=== PATIENT | male | born 1930 | race Caucasian/White ===

== ENCOUNTER 2018-04-20 07:46 | Outpatient (CLI) | payer MEDICARE, MEDICAID ==
[2018-04-20] VITALS (20 sets, daily range): BP systolic 124–170; BP diastolic 62–99
[~2018-04-20 07:46] MED LIST: ASPI-1265 PO; CLOP75TA16 PO; FURO40TA4 PO; ISOS20TA8 PO; LISI10TA4 PO; ZOC40T PO
== END 2018-04-20 23:59 | disposition home or self-care (01) ==
LOC: CARD DIAG 07:46
PROVIDERS: ATTEND Internal Medicine Cardiovascular Disease
DX: I11.0 Hypertensive heart disease with heart failure (principal); I50.9 Heart failure, unspecified; F03.90 Unspecified dementia, unspecified severity, without behavioral disturbance, psychotic disturbance, mood disturbance, and anxiety; R55 Syncope and collapse
CPT/HCPCS: 93660

== ENCOUNTER 2018-04-21 08:41 | Outpatient (CLI) | payer MEDICARE, MEDICAID | END 2018-04-21 23:59 | disposition home or self-care (01) | LOC: 64 CT 08:41 | PROVIDERS: ATTEND Family Medicine | DX: M19.011 Primary osteoarthritis, right shoulder (principal); S43.401A Unspecified sprain of right shoulder joint, initial encounter; X58.XXXA Exposure to other specified factors, initial encounter; Y93.89 Activity, other specified; Y92.89 Other specified places as the place of occurrence of the external cause; Y99.8 Other external cause status | CPT/HCPCS: 73200 ==

== ENCOUNTER 2018-07-09 10:41 | Inpatient (IN) | payer MEDICARE, MEDICAID ==
[2018-07-09] VITALS (8 sets, daily range): BP systolic 89–120; BP diastolic 41–53
[~2018-07-09] VITALS: Ht 167.6 cm; Wt 96.9 kg
[~2018-07-09 10:41] MED LIST changes: +pantoprazole 40 MG vial IV SCH
[2018-07-09] MEDS ORDERED: normal saline 1000ML IV soln IV ONE (11:05)
[2018-07-09 11:47] LABS: BASOPHILS % (AUTO) 0.2 % (0-1); EOSINOPHILS % (AUTO) 0.4 % (0-6); HEMATOCRIT 40.7 % (42.0-52.0); HEMOGLOBIN 13.6 g/dl (14.0-17.9); LYMPHOCYTES # (AUTO) 0.5 X10'3 (1.1-4.8); MEAN CORPUSCULAR HEMOGLOBIN 31.6 PG (27.0-31.0); MEAN CORPUSCULAR HGB CONC 33.3 % (33.0-36.5); MEAN CORPUSCULAR VOLUME 94.7 FL (78-98); MEAN PLATELET VOLUME 9.5 FL (7.4-10.4); MONOCYTES # (AUTO) 0.2 X10'3 (0-0.9); MONOCYTES % (AUTO) 4.1 % (2-12); NEUTROPHILS # (AUTO) 4.4 X10'3 (1.8-7.7); NEUTROPHILS % (AUTO) 85.3 % (42-75); PLATELET COUNT 132 X10'3 (140-440); RED BLOOD COUNT 4.29 X10'6 (4.70-6.10); RED CELL DISTRIBUTION WIDTH 16.4 % (11.5-14.5); WHITE BLOOD COUNT 5.2 X10'3 (4.5-11.0)
[2018-07-09 11:48] LABS: INR 1.1 INR; PARTIAL THROMBOPLASTIN TIME 33 SECONDS (22-32); PROTHROMBIN TIME 11.1 SECONDS (9.0-12.0)
[2018-07-09 11:56] LABS: ALANINE AMINOTRANSFERASE 14 U/L (12-78); ALBUMIN 2.2 G/DL (3.4-5.0); ALBUMIN/GLOBULIN RATIO 0.5 (1.1-1.5); ALKALINE PHOSPHATASE 88 IU/L (46-116); ANION GAP 20 (8-16); ASPARTATE AMINO TRANSFERASE 19 U/L (10-37); BILIRUBIN,TOTAL 0.3 MG/DL (0.1-1.0); BLOOD UREA NITROGEN 116 MG/DL (7-18); BUN/CREATININE RATIO 12.9 (5.4-32.0); CALCIUM 8.6 MG/DL (8.5-10.1); CHLORIDE 111 MMOL/L (99-107); CREATININE 8.96 MG/DL (0.60-1.10); GLUCOSE 130 MG/DL (70-104); SODIUM 140 MMOL/L (135-145); TOTAL PROTEIN 6.3 G/DL (6.4-8.2); eGFR 6 ML/MIN
[2018-07-09 12:06] LABS: POTASSIUM 6.2 MMOL/L (3.5-5.1); TOTAL CARBON DIOXIDE 9.4 MMOL/L (24-32)
[2018-07-09] MEDS ORDERED: vancomycin/NS 1 GM ADD-VANTAGE 250 ML X 1 DOSE IV ONE (12:40)
[2018-07-09] MEDS ORDERED: CefTRIAXone 2gm/D5W 50ml 50 ML IV ONE (12:50)
[2018-07-09 12:51] LABS: CLARITY,URINE CLOUDY (Clear); COLOR,URINE YELLOW (Yellow); GLUCOSE, URINE NEGATIVE (Neg); KETONES,URINE TRACE mg/dl (Neg); LEUKOCYTE ESTERASE ,URINE NEGATIVE (Neg); NITRITES, URINE NEGATIVE (Neg); OCCULT BLOOD,URINE MODERATE (Neg); PROTEIN,URINE NEGATIVE (Neg); UROBILINOGEN,URINE 0.2 E.U/dL (0.2-1.0)
[2018-07-09 12:54] LABS: UA COLLECTION TYPE FOLEY CATH
[2018-07-09] MEDS: K, MAG and/or Phos replacement - Verify level? MC SCH (13:00)
[2018-07-09 13:04] LABS: AMORPHOUS URATES 2+; BACTERIA,URINE NONE SEEN /HPF (Neg); HYALINE CASTS 0-3 /LPF (NEGATIVE); MUCUS STRANDS FEW /LPF (Neg); SQUAMOUS EPITHELIAL CELL,UR FEW /LPF (FEW)
[2018-07-09 13:05] LABS: WBC,URINE 0-4 /HPF (0-4)
[2018-07-09 13:32] LABS: NEUTROPHILS % (MANUAL) 66 % (42-75); TOTAL CELLS COUNTED 100
[2018-07-09 13:33] LABS: BANDS% (MANUAL) 16 % (0-10); LYMPHOCYTES % (MANUAL) 12 % (21-51); MONOCYTES % (MANUAL) 6 % (2-12); PLATELET ESTIMATE DECREASED
[2018-07-09 13:34] LABS: LARGE PLATELETS FEW
[2018-07-09 13:35] LABS: ABG BASE EXCESS -16.3 mmol/L (-2.0-3.0); ABG OXYGEN SATURATION 97.2 % (95-98); ABG PH (T) 7.317 (7.350-7.450); ALLEN'S TEST Positive; FCOHb 0.2 % (0.5-1.5); FMetHb 0.4 % (0.3-1.12); FO2Hb 96.6 % (94-100); TOTAL HEMOGLOBIN 13.4 G/dl (14.0-18.0)
[2018-07-09 13:35] LABS: ANISOCYTOSIS 1+; TOXIC GRANULATION 3+; TOXIC VACUOLATION 3+
[2018-07-09 13:36] LABS: BURR CELLS 2+; ELLIPTOCYTES FEW
[2018-07-09] MEDS ORDERED: acetaminophen 325mg tablet PO PRN ×2 (14:20)
[2018-07-09] MEDS ORDERED: Neutra Phos packet PO PRN (14:20)
[2018-07-09] MEDS ORDERED: sodium phosphate inj. 30 MMOL in dextrose 5%-water 250 ML IV PRN (14:20)
[2018-07-09] MEDS ORDERED: bisacodyl 10mg suppository rectal RC PRN (14:20)
[2018-07-09] MEDS ORDERED: magnesium 4gm in 100ml NS 100 ML IV PRN (14:20)
[2018-07-09] MEDS ORDERED: potassium Cl 20 mEq SR tablet PO PRN ×2 (14:20)
[2018-07-09] MEDS ORDERED: ondansetron/PF 4mg/2ml inj IV PRN (14:20)
[2018-07-09] MEDS ORDERED: magnesium 1gm/100ml D5W IVPB 100 ML IV PRN (14:20)
[2018-07-09] MEDS ORDERED: magnesium Cl slow-release 64mg tablet PO PRN (14:20)
[2018-07-09] MEDS ORDERED: sodium phosphate inj. 15 MMOL in dextrose 5%-water 150 ML IV PRN (14:20)
[2018-07-09] MEDS ORDERED: sodium bicarbonate (8.4%) 1 mEq/ml syringe IV ONE (14:30)
[2018-07-09] MEDS: pantoprazole 40 MG vial IV SCH (14:59)
[2018-07-09] MEDS: albuterol 2.5 MG/3 ML nebule CONTNEB SCH ×4 (15:16→18:42)
[2018-07-09] MEDS: sodium bicarbonate (8.4%) inj. 150 MEQ in dextrose 5%-water 1,000 ML IV SCH (15:51)
[2018-07-09] MEDS: piperacillin/tazo 3.375gm/50ml 50 ML IV SCH ×2 (16:46→23:23)
[2018-07-09 17:16] LABS: ALBUMIN 2.2 G/DL (3.4-5.0); ANION GAP 16 (8-16); BLOOD UREA NITROGEN 110 MG/DL (7-18); BUN/CREATININE RATIO 13.4 (5.4-32.0); CALCIUM 8.4 MG/DL (8.5-10.1); CHLORIDE 113 MMOL/L (99-107); GLUCOSE 145 MG/DL (70-104); POTASSIUM 5.9 MMOL/L (3.5-5.1); SODIUM 142 MMOL/L (135-145); eGFR 6 ML/MIN
[2018-07-09 17:18] LABS: TOTAL CARBON DIOXIDE 13.1 MMOL/L (24-32)
[2018-07-09] MEDS ORDERED: dextrose 50%-water 50ml dispensing syringe IV ONE (19:40)
[2018-07-09] MEDS ORDERED: insulin regular, human 10 units/0.1 ml syringe IV ONE (19:40)
[2018-07-09] MEDS: heparin, porcine 5000 units/ml vial SQ SCH (20:04)
[2018-07-09 23:05] LABS: ANION GAP 19 (8-16); BLOOD UREA NITROGEN 112 MG/DL (7-18); BUN/CREATININE RATIO 13.1 (5.4-32.0); CHLORIDE 111 MMOL/L (99-107); CREATININE 8.52 MG/DL (0.60-1.10); GLUCOSE 196 MG/DL (70-104); POTASSIUM 4.9 MMOL/L (3.5-5.1); SODIUM 142 MMOL/L (135-145); eGFR 6 ML/MIN
[2018-07-09 23:09] LABS: TOTAL CARBON DIOXIDE 11.7 MMOL/L (24-32)
[2018-07-10] VITALS (24 sets, daily range): BP systolic 80–144; BP diastolic 40–87
[2018-07-10] MEDS: sodium bicarbonate (8.4%) inj. 150 MEQ in dextrose 5%-water 1,000 ML IV SCH ×3 (02:42→23:34)
[2018-07-10] MEDS: VANCOMYCIN LEVEL IV SCH (04:44)
[2018-07-10 05:53] LABS: BASOPHILS % (AUTO) 0.3 % (0-1); HEMATOCRIT 37.3 % (42.0-52.0); HEMOGLOBIN 12.6 g/dl (14.0-17.9); LYMPHOCYTES # (AUTO) 0.6 X10'3 (1.1-4.8); LYMPHOCYTES % (AUTO) 13.4 % (21-51); MEAN CORPUSCULAR HEMOGLOBIN 31.4 PG (27.0-31.0); MEAN CORPUSCULAR HGB CONC 33.7 % (33.0-36.5); MEAN CORPUSCULAR VOLUME 93.1 FL (78-98); MEAN PLATELET VOLUME 9.7 FL (7.4-10.4); MONOCYTES # (AUTO) 0.3 X10'3 (0-0.9); MONOCYTES % (AUTO) 6.9 % (2-12); NEUTROPHILS # (AUTO) 3.2 X10'3 (1.8-7.7); NEUTROPHILS % (AUTO) 78.4 % (42-75); PLATELET COUNT 128 X10'3 (140-440); RED CELL DISTRIBUTION WIDTH 16.8 % (11.5-14.5); WHITE BLOOD COUNT 4.1 X10'3 (4.5-11.0)
[2018-07-10 05:59] LABS: INR 1.1 INR; PARTIAL THROMBOPLASTIN TIME 35 SECONDS (22-32); PROTHROMBIN TIME 11.4 SECONDS (9.0-12.0)
[2018-07-10] MEDS ORDERED: vancomycin inj 1,250 MG in normal saline 250ml IV soln 250 ML IV PRN (06:00)
[2018-07-10 06:02] LABS: ALBUMIN 1.9 G/DL (3.4-5.0); ANION GAP 16 (8-16); BILIRUBIN,TOTAL 0.3 MG/DL (0.1-1.0); BLOOD UREA NITROGEN 113 MG/DL (7-18); BUN/CREATININE RATIO 13.8 (5.4-32.0); CALCIUM 8.2 MG/DL (8.5-10.1); CHLORIDE 110 MMOL/L (99-107); CREATININE 8.17 MG/DL (0.60-1.10); GLUCOSE 110 MG/DL (70-104); MAGNESIUM 1.9 MG/DL (1.5-2.4); PHOSPHORUS 3.6 MG/DL (2.3-4.5); POTASSIUM 4.9 MMOL/L (3.5-5.1); SODIUM 143 MMOL/L (135-145); TOTAL CARBON DIOXIDE 16.8 MMOL/L (24-32); TOTAL PROTEIN 5.7 G/DL (6.4-8.2); eGFR 6 ML/MIN
[2018-07-10 06:03] LABS: ALANINE AMINOTRANSFERASE 11 U/L (12-78); ALBUMIN/GLOBULIN RATIO 0.5 (1.1-1.5); ALKALINE PHOSPHATASE 79 IU/L (46-116); ASPARTATE AMINO TRANSFERASE 17 U/L (10-37); VANCOMYCIN,RANDOM 12.1 UG/ML
[2018-07-10 06:16] LABS: ANISOCYTOSIS 1+; PLATELET ESTIMATE DECREASED; TOTAL CELLS COUNTED 100
[2018-07-10 06:18] LABS: TOXIC GRANULATION 2+
[2018-07-10] MEDS: K, MAG and/or Phos replacement - Verify level? MC SCH (07:41)
[2018-07-10] MEDS: pantoprazole 40 MG vial IV SCH (07:51)
[2018-07-10] MEDS: piperacillin/tazo 3.375gm/50ml 50 ML IV SCH ×3 (07:51→23:33)
[2018-07-10] MEDS: heparin, porcine 5000 units/ml vial SQ SCH ×2 (07:52→19:40)
[2018-07-10] MEDS ORDERED: vancomycin inj 1,250 MG in normal saline 250ml IV soln 250 ML IV ONE (11:25)
[2018-07-10] MEDS ORDERED: LISI-600 PO (13:09)
[2018-07-10] MEDS: lactobacillus rhamnosus 10,000 MMU CELLS/CAPSULE PO SCH (19:36)
[2018-07-11] VITALS (24 sets, daily range): BP systolic 15–175; BP diastolic 45–97
[2018-07-11] MEDS ORDERED: piperacillin-tazo 2.25gm/50ml 50 ML IV SCH (02:00)
[2018-07-11] MEDS: VANCOMYCIN LEVEL IV SCH (05:11)
[2018-07-11 06:08] LABS: BASOPHILS % (AUTO) 0.2 % (0-1); EOSINOPHILS # (AUTO) 0.1 X10'3 (0-0.9); EOSINOPHILS % (AUTO) 2.7 % (0-6); HEMATOCRIT 38.2 % (42.0-52.0); HEMOGLOBIN 12.8 g/dl (14.0-17.9); LYMPHOCYTES # (AUTO) 0.6 X10'3 (1.1-4.8); LYMPHOCYTES % (AUTO) 14.1 % (21-51); MEAN CORPUSCULAR HEMOGLOBIN 31.2 PG (27.0-31.0); MEAN CORPUSCULAR HGB CONC 33.6 % (33.0-36.5); MEAN CORPUSCULAR VOLUME 92.9 FL (78-98); MEAN PLATELET VOLUME 10.2 FL (7.4-10.4); MONOCYTES # (AUTO) 0.6 X10'3 (0-0.9); MONOCYTES % (AUTO) 13.5 % (2-12); NEUTROPHILS # (AUTO) 2.9 X10'3 (1.8-7.7); NEUTROPHILS % (AUTO) 69.5 % (42-75); PLATELET COUNT 112 X10'3 (140-440); RED BLOOD COUNT 4.11 X10'6 (4.70-6.10); RED CELL DISTRIBUTION WIDTH 15.4 % (11.5-14.5); WHITE BLOOD COUNT 4.2 X10'3 (4.5-11.0)
[2018-07-11 06:12] LABS: INR 1.1 INR; PARTIAL THROMBOPLASTIN TIME 40 SECONDS (22-32); PROTHROMBIN TIME 11.6 SECONDS (9.0-12.0)
[2018-07-11 06:42] LABS: ANISOCYTOSIS 1+; PLATELET ESTIMATE DECREASED; TOTAL CELLS COUNTED 100; TOXIC GRANULATION 2+
[2018-07-11 07:10] LABS: ALANINE AMINOTRANSFERASE 19 U/L (12-78); ALBUMIN 1.8 G/DL (3.4-5.0); ALBUMIN/GLOBULIN RATIO 0.5 (1.1-1.5); ALKALINE PHOSPHATASE 76 IU/L (46-116); ANION GAP 13 (8-16); ASPARTATE AMINO TRANSFERASE 29 U/L (10-37); BILIRUBIN,TOTAL 0.4 MG/DL (0.1-1.0); BLOOD UREA NITROGEN 98 MG/DL (7-18); BUN/CREATININE RATIO 13.9 (5.4-32.0); CALCIUM 7.9 MG/DL (8.5-10.1); CHLORIDE 108 MMOL/L (99-107); CREATININE 7.06 MG/DL (0.60-1.10); GLUCOSE 93 MG/DL (70-104); MAGNESIUM 1.6 MG/DL (1.5-2.4); PHOSPHORUS 3.4 MG/DL (2.3-4.5); POTASSIUM 4.3 MMOL/L (3.5-5.1); SODIUM 145 MMOL/L (135-145); TOTAL CARBON DIOXIDE 23.6 MMOL/L (24-32); TOTAL PROTEIN 5.5 G/DL (6.4-8.2); VANCOMYCIN,RANDOM 21.7 UG/ML; eGFR 7 ML/MIN
[2018-07-11] MEDS: clopidogrel 75mg tablet PO SCH (08:00)
[2018-07-11] MEDS: piperacillin/tazo 3.375gm/50ml 50 ML IV SCH ×2 (08:00→15:32)
[2018-07-11] MEDS: K, MAG and/or Phos replacement - Verify level? MC SCH (08:00)
[2018-07-11] MEDS: lactobacillus rhamnosus 10,000 MMU CELLS/CAPSULE PO SCH ×2 (08:00→19:54)
[2018-07-11] MEDS: heparin, porcine 5000 units/ml vial SQ SCH ×2 (08:00→19:54)
[2018-07-11] MEDS: aspirin 81mg tab.chew PO SCH (08:00)
[2018-07-11] MEDS: pantoprazole 40 MG vial IV SCH (08:01)
[2018-07-11] MEDS: sodium bicarbonate (8.4%) inj. 150 MEQ in dextrose 5%-water 1,000 ML IV SCH (15:35)
[2018-07-12] VITALS (19 sets, daily range): BP systolic 92–158; BP diastolic 58–92
[2018-07-12] MEDS: piperacillin/tazo 3.375gm/50ml 50 ML IV SCH ×3 (00:38→15:54)
[2018-07-12] MEDS: sodium bicarbonate (8.4%) inj. 150 MEQ in dextrose 5%-water 1,000 ML IV SCH (02:00)
[2018-07-12] MEDS: VANCOMYCIN LEVEL IV SCH (03:00)
[2018-07-12 06:18] LABS: BASOPHILS % (AUTO) 0.2 % (0-1); EOSINOPHILS # (AUTO) 0.1 X10'3 (0-0.9); EOSINOPHILS % (AUTO) 3.3 % (0-6); HEMATOCRIT 37.9 % (42.0-52.0); HEMOGLOBIN 12.7 g/dl (14.0-17.9); LYMPHOCYTES # (AUTO) 0.8 X10'3 (1.1-4.8); LYMPHOCYTES % (AUTO) 18.8 % (21-51); MEAN CORPUSCULAR HEMOGLOBIN 31.3 PG (27.0-31.0); MEAN CORPUSCULAR HGB CONC 33.5 % (33.0-36.5); MEAN CORPUSCULAR VOLUME 93.5 FL (78-98); MONOCYTES # (AUTO) 0.4 X10'3 (0-0.9); NEUTROPHILS # (AUTO) 2.8 X10'3 (1.8-7.7); NEUTROPHILS % (AUTO) 68.7 % (42-75); PLATELET COUNT 99 X10'3 (140-440); RED BLOOD COUNT 4.05 X10'6 (4.70-6.10); RED CELL DISTRIBUTION WIDTH 15.7 % (11.5-14.5); WHITE BLOOD COUNT 4.2 X10'3 (4.5-11.0)
[2018-07-12 06:25] LABS: INR 1.1 INR; PARTIAL THROMBOPLASTIN TIME 38 SECONDS (22-32); PROTHROMBIN TIME 11.4 SECONDS (9.0-12.0)
[2018-07-12 06:40] LABS: PLATELET ESTIMATE DECREASED; POLYCHROMASIA 1+; TOTAL CELLS COUNTED 100
[2018-07-12 06:51] LABS: ALANINE AMINOTRANSFERASE 23 U/L (12-78); ALBUMIN 1.6 G/DL (3.4-5.0); ALBUMIN/GLOBULIN RATIO 0.5 (1.1-1.5); ALKALINE PHOSPHATASE 67 IU/L (46-116); ANION GAP 9 (8-16); ASPARTATE AMINO TRANSFERASE 30 U/L (10-37); BILIRUBIN,TOTAL 0.4 MG/DL (0.1-1.0); BLOOD UREA NITROGEN 78 MG/DL (7-18); CALCIUM 7.8 MG/DL (8.5-10.1); CHLORIDE 106 MMOL/L (99-107); CREATININE 5.57 MG/DL (0.60-1.10); GLUCOSE 99 MG/DL (70-104); MAGNESIUM 1.6 MG/DL (1.5-2.4); PHOSPHORUS 3.4 MG/DL (2.3-4.5); POTASSIUM 3.6 MMOL/L (3.5-5.1); SODIUM 145 MMOL/L (135-145); TOTAL CARBON DIOXIDE 30.2 MMOL/L (24-32); TOTAL PROTEIN 5.1 G/DL (6.4-8.2); VANCOMYCIN,RANDOM 16.1 UG/ML; eGFR 10 ML/MIN
[2018-07-12] MEDS: K, MAG and/or Phos replacement - Verify level? MC SCH (08:00)
[2018-07-12] MEDS: heparin, porcine 5000 units/ml vial SQ SCH ×2 (08:41→19:42)
[2018-07-12] MEDS: lactobacillus rhamnosus 10,000 MMU CELLS/CAPSULE PO SCH ×2 (08:41→19:40)
[2018-07-12] MEDS: pantoprazole 40 MG vial IV SCH (08:41)
[2018-07-12] MEDS: aspirin 81mg tab.chew PO SCH (08:41)
[2018-07-12] MEDS: clopidogrel 75mg tablet PO SCH (08:42)
[2018-07-12] MEDS ORDERED: normal saline 1000ml 1,000 ML IV SCH (10:55)
[2018-07-12] MEDS: normal saline 1000ml 1,000 ML IV SCH (12:45)
[2018-07-13] MEDS: piperacillin/tazo 3.375gm/50ml 50 ML IV SCH ×2 (00:11→08:07)
[2018-07-13] MEDS: normal saline 1000ml 1,000 ML IV SCH ×2 (00:14→14:50)
[2018-07-13 03:00] VITALS: BP 118/72
[2018-07-13] MEDS: VANCOMYCIN LEVEL IV SCH (03:00)
[2018-07-13 06:00] VITALS: BP 160/83
[2018-07-13 06:10] LABS: BASOPHILS % (AUTO) 0.5 % (0-1); EOSINOPHILS # (AUTO) 0.1 X10'3 (0-0.9); EOSINOPHILS % (AUTO) 3.4 % (0-6); HEMATOCRIT 38.4 % (42.0-52.0); HEMOGLOBIN 12.9 g/dl (14.0-17.9); LYMPHOCYTES # (AUTO) 1.1 X10'3 (1.1-4.8); LYMPHOCYTES % (AUTO) 27.9 % (21-51); MEAN CORPUSCULAR HEMOGLOBIN 31.3 PG (27.0-31.0); MEAN CORPUSCULAR HGB CONC 33.6 % (33.0-36.5); MEAN PLATELET VOLUME 9.8 FL (7.4-10.4); MONOCYTES # (AUTO) 0.4 X10'3 (0-0.9); NEUTROPHILS # (AUTO) 2.2 X10'3 (1.8-7.7); NEUTROPHILS % (AUTO) 57.2 % (42-75); PLATELET COUNT 101 X10'3 (140-440); RED BLOOD COUNT 4.13 X10'6 (4.70-6.10); RED CELL DISTRIBUTION WIDTH 16.2 % (11.5-14.5); WHITE BLOOD COUNT 3.9 X10'3 (4.5-11.0)
[2018-07-13 06:17] LABS: PARTIAL THROMBOPLASTIN TIME 35 SECONDS (22-32); PROTHROMBIN TIME 10.8 SECONDS (9.0-12.0)
[2018-07-13 06:33] LABS: ALANINE AMINOTRANSFERASE 16 U/L (12-78); ALBUMIN 1.6 G/DL (3.4-5.0); ALBUMIN/GLOBULIN RATIO 0.4 (1.1-1.5); ALKALINE PHOSPHATASE 69 IU/L (46-116); ANION GAP 9 (8-16); ASPARTATE AMINO TRANSFERASE 30 U/L (10-37); BILIRUBIN,TOTAL 0.5 MG/DL (0.1-1.0); BLOOD UREA NITROGEN 60 MG/DL (7-18); BUN/CREATININE RATIO 14.4 (5.4-32.0); CALCIUM 8.3 MG/DL (8.5-10.1); CHLORIDE 107 MMOL/L (99-107); CREATININE 4.17 MG/DL (0.60-1.10); GLUCOSE 79 MG/DL (70-104); MAGNESIUM 1.7 MG/DL (1.5-2.4); PHOSPHORUS 3.2 MG/DL (2.3-4.5); POTASSIUM 3.2 MMOL/L (3.5-5.1); SODIUM 146 MMOL/L (135-145); TOTAL CARBON DIOXIDE 30.1 MMOL/L (24-32); TOTAL PROTEIN 5.4 G/DL (6.4-8.2); VANCOMYCIN,RANDOM 12.6 UG/ML; eGFR 14 ML/MIN
[2018-07-13] MEDS ORDERED: vancomycin inj 1,250 MG in normal saline 250ml IV soln 250 ML IV ONE (07:25)
[2018-07-13] MEDS: K, MAG and/or Phos replacement - Verify level? MC SCH (08:00)
[2018-07-13] MEDS: pantoprazole 40 MG vial IV SCH (08:07)
[2018-07-13] MEDS: clopidogrel 75mg tablet PO SCH (08:09)
[2018-07-13] MEDS: lactobacillus rhamnosus 10,000 MMU CELLS/CAPSULE PO SCH ×2 (08:09→20:41)
[2018-07-13] MEDS: heparin, porcine 5000 units/ml vial SQ SCH ×2 (08:09→17:07)
[2018-07-13] MEDS: aspirin 81mg tab.chew PO SCH (08:09)
[2018-07-13 12:52] VITALS: BP 113/70
[2018-07-13 13:00] VITALS: BP 147/81
[2018-07-13 19:00] VITALS: BP 126/57
[2018-07-13] MEDS ORDERED: piperacillin-tazo 2.25gm/50ml 50 ML IV SCH (20:00)
[2018-07-13 23:00] VITALS: BP 93/59
[2018-07-14] VITALS (13 sets, daily range): BP systolic 69–124; BP diastolic 35–65
[2018-07-14 02:09] LABS: PARTIAL THROMBOPLASTIN TIME 31 SECONDS (22-32); PROTHROMBIN TIME 10.7 SECONDS (9.0-12.0)
[2018-07-14 02:14] LABS: ALANINE AMINOTRANSFERASE 21 U/L (12-78); ALBUMIN 1.8 G/DL (3.4-5.0); ALBUMIN/GLOBULIN RATIO 0.5 (1.1-1.5); ALKALINE PHOSPHATASE 70 IU/L (46-116); ANION GAP 7 (8-16); ASPARTATE AMINO TRANSFERASE 32 U/L (10-37); BASOPHILS % (AUTO) 0.3 % (0-1); BILIRUBIN,TOTAL 0.5 MG/DL (0.1-1.0); BLOOD UREA NITROGEN 48 MG/DL (7-18); BUN/CREATININE RATIO 13.6 (5.4-32.0); CHLORIDE 107 MMOL/L (99-107); CREATININE 3.54 MG/DL (0.60-1.10); EOSINOPHILS # (AUTO) 0.1 X10'3 (0-0.9); EOSINOPHILS % (AUTO) 2.5 % (0-6); GLUCOSE 105 MG/DL (70-104); HEMATOCRIT 36.1 % (42.0-52.0); HEMOGLOBIN 11.9 g/dl (14.0-17.9); LYMPHOCYTES # (AUTO) 1.6 X10'3 (1.1-4.8); LYMPHOCYTES % (AUTO) 31.3 % (21-51); MAGNESIUM 1.6 MG/DL (1.5-2.4); MEAN CORPUSCULAR HEMOGLOBIN 30.9 PG (27.0-31.0); MEAN CORPUSCULAR HGB CONC 32.9 % (33.0-36.5); MEAN CORPUSCULAR VOLUME 94.1 FL (78-98); MEAN PLATELET VOLUME 9.4 FL (7.4-10.4); MONOCYTES # (AUTO) 0.5 X10'3 (0-0.9); MONOCYTES % (AUTO) 10.2 % (2-12); NEUTROPHILS # (AUTO) 2.9 X10'3 (1.8-7.7); NEUTROPHILS % (AUTO) 55.7 % (42-75); PLATELET COUNT 115 X10'3 (140-440); POTASSIUM 3.3 MMOL/L (3.5-5.1); RED BLOOD COUNT 3.84 X10'6 (4.70-6.10); RED CELL DISTRIBUTION WIDTH 15.9 % (11.5-14.5); SODIUM 143 MMOL/L (135-145); TOTAL CARBON DIOXIDE 29.1 MMOL/L (24-32); TOTAL PROTEIN 5.4 G/DL (6.4-8.2); VANCOMYCIN,RANDOM 19.8 UG/ML; WHITE BLOOD COUNT 5.3 X10'3 (4.5-11.0); eGFR 16 ML/MIN
[2018-07-14] MEDS: VANCOMYCIN LEVEL IV SCH (03:00)
[2018-07-14] MEDS ORDERED: CefTRIAXone/D5W-Rocephin 1gm 50 ML IV SCH (08:00)
[2018-07-14] MEDS: K, MAG and/or Phos replacement - Verify level? MC SCH (08:00)
[2018-07-14] MEDS ORDERED: CefTRIAXone inj 1,000 MG in normal saline 100ml IV soln 100 ML IV SCH (08:00)
[2018-07-14] MEDS: pantoprazole 40 MG vial IV SCH (08:35)
[2018-07-14] MEDS: clopidogrel 75mg tablet PO SCH (10:56)
[2018-07-14] MEDS: lactobacillus rhamnosus 10,000 MMU CELLS/CAPSULE PO SCH ×2 (10:56→21:59)
[2018-07-14] MEDS: heparin, porcine 5000 units/ml vial SQ SCH (10:57)
[2018-07-14] MEDS ORDERED: normal saline 1000ml 1,000 ML IV ONE (15:00)
[2018-07-14 15:21] LABS: HEMATOCRIT 27.1 % (42.0-52.0); HEMOGLOBIN 8.8 g/dl (14.0-17.9); MEAN CORPUSCULAR HEMOGLOBIN 30.7 PG (27.0-31.0); MEAN CORPUSCULAR HGB CONC 32.6 % (33.0-36.5); MEAN CORPUSCULAR VOLUME 94.1 FL (78-98); MEAN PLATELET VOLUME 9.6 FL (7.4-10.4); PLATELET COUNT 88 X10'3 (140-440); RED BLOOD COUNT 2.88 X10'6 (4.70-6.10); RED CELL DISTRIBUTION WIDTH 16.2 % (11.5-14.5); WHITE BLOOD COUNT 6.7 X10'3 (4.5-11.0)
[2018-07-14] MEDS: normal saline 1000ml 1,000 ML IV SCH ×2 (16:36→17:30)
[2018-07-14] MEDS ORDERED: MORPHINE 2MG in 2ml NS syringe IV PRN (17:15)
[2018-07-14] MEDS ORDERED: morphine 2 MG/ML inj. syringe IV PRN (17:45)
[2018-07-15 06:00] VITALS: BP 112/59
[2018-07-15] MEDS: normal saline 1000ml 1,000 ML IV SCH ×2 (06:50→20:10)
[2018-07-15] MEDS: lactobacillus rhamnosus 10,000 MMU CELLS/CAPSULE PO SCH ×2 (08:00→19:14)
[2018-07-15] MEDS: pantoprazole 40 MG vial IV SCH (08:00)
[2018-07-15] MEDS: K, MAG and/or Phos replacement - Verify level? MC SCH (08:00)
[2018-07-16 02:00] VITALS: BP 143/67
[2018-07-16] MEDS: pantoprazole 40 MG vial IV SCH (08:00)
[2018-07-16] MEDS: K, MAG and/or Phos replacement - Verify level? MC SCH (08:00)
[2018-07-16] MEDS: lactobacillus rhamnosus 10,000 MMU CELLS/CAPSULE PO SCH ×2 (08:00→19:50)
[2018-07-16 11:00] VITALS: BP 97/61
[2018-07-16 18:00] VITALS: BP 146/69
[2018-07-16] MEDS ORDERED: morphine 4 MG/ML inj SYRINge IV PRN (19:10)
[2018-07-16 22:00] VITALS: BP 148/48
[2018-07-17 02:00] VITALS: BP 142/52
[2018-07-17 07:02] VITALS: BP 135/53
[2018-07-17] MEDS ORDERED: furosemide 40mg tablet PO SCH (08:00)
[2018-07-17] MEDS: K, MAG and/or Phos replacement - Verify level? MC SCH (08:00)
[2018-07-17] MEDS: lactobacillus rhamnosus 10,000 MMU CELLS/CAPSULE PO SCH (08:31)
[2018-07-17] MEDS: pantoprazole 40 MG vial IV SCH (08:31)
[2018-07-17] MEDS ORDERED: POTA20TA10 PO (10:13)
[2018-07-17 11:17] LABS: BASOPHILS % (AUTO) 0.3 % (0-1); EOSINOPHILS # (AUTO) 0.3 X10'3 (0-0.9); EOSINOPHILS % (AUTO) 5.6 % (0-6); HEMATOCRIT 24.8 % (42.0-52.0); HEMOGLOBIN 8.2 g/dl (14.0-17.9); LYMPHOCYTES # (AUTO) 1.4 X10'3 (1.1-4.8); LYMPHOCYTES % (AUTO) 26.8 % (21-51); MEAN CORPUSCULAR HEMOGLOBIN 30.2 PG (27.0-31.0); MEAN CORPUSCULAR HGB CONC 33.2 % (33.0-36.5); MEAN CORPUSCULAR VOLUME 91.2 FL (78-98); MEAN PLATELET VOLUME 9.5 FL (7.4-10.4); MONOCYTES # (AUTO) 0.3 X10'3 (0-0.9); MONOCYTES % (AUTO) 5.9 % (2-12); NEUTROPHILS # (AUTO) 3.1 X10'3 (1.8-7.7); NEUTROPHILS % (AUTO) 61.4 % (42-75); PLATELET COUNT 86 X10'3 (140-440); RED BLOOD COUNT 2.71 X10'6 (4.70-6.10); RED CELL DISTRIBUTION WIDTH 17.3 % (11.5-14.5); WHITE BLOOD COUNT 5.1 X10'3 (4.5-11.0)
[2018-07-17 11:27] LABS: ALBUMIN 1.5 G/DL (3.4-5.0); ANION GAP 6 (8-16); BLOOD UREA NITROGEN 22 MG/DL (7-18); BUN/CREATININE RATIO 12.6 (5.4-32.0); CALCIUM 7.8 MG/DL (8.5-10.1); CHLORIDE 108 MMOL/L (99-107); CREATININE 1.75 MG/DL (0.60-1.10); GLUCOSE 119 MG/DL (70-104); POTASSIUM 3.1 MMOL/L (3.5-5.1); SODIUM 141 MMOL/L (135-145); TOTAL CARBON DIOXIDE 26.6 MMOL/L (24-32); eGFR 37 ML/MIN
== END 2018-07-17 16:00 | disposition home health service (06) | DRG 871 ==
LOC: ER 10:41 → ED HOLD 14:20 → EDBEDREQ 15:08 → ICU 2S 15:40 → PCU 3S 07-12 17:30
PROVIDERS: ATTEND Internal Medicine
PROC: 30233N1 Transfusion of Nonautologous Red Blood Cells into Peripheral Vein, Percutaneous Approach (ICD-10-PCS; principal; 2018-07-14)
DX: A41.9 Sepsis, unspecified organism (principal); G93.41 Metabolic encephalopathy; N18.4 Chronic kidney disease, stage 4 (severe); E44.0 Moderate protein-calorie malnutrition; E87.2 Acidosis; K57.32 Diverticulitis of large intestine without perforation or abscess without bleeding; K62.5 Hemorrhage of anus and rectum; N17.9 Acute kidney failure, unspecified; I13.0 Hypertensive heart and chronic kidney disease with heart failure and stage 1 through stage 4 chronic kidney disease, or unspecified chronic kidney disease; E78.00 Pure hypercholesterolemia, unspecified; E86.0 Dehydration; E87.5 Hyperkalemia; F03.90 Unspecified dementia, unspecified severity, without behavioral disturbance, psychotic disturbance, mood disturbance, and anxiety; M10.9 Gout, unspecified; Z66 Do not resuscitate; H91.90 Unspecified hearing loss, unspecified ear; I25.10 Atherosclerotic heart disease of native coronary artery without angina pectoris; I50.9 Heart failure, unspecified; Z51.5 Encounter for palliative care; Z95.0 Presence of cardiac pacemaker; Z79.899 Other long term (current) drug therapy; Z85.820 Personal history of malignant melanoma of skin; Z68.34 Body mass index [BMI] 34.0-34.9, adult
CPT/HCPCS: 36415; 36600; 71045; 74176; 80048; 80053; 80202; 81001; 82140; 82803; 82948; 83605; 83735; 84100; 84145; 84484; 85018; 85025; 85027; 85610; 85730; 86885; 86900; 86901; 86920; 87040; 87070; 93005; 94640; 94760; 96361; 96365; 97110; 97116; 97161; 97530; 99285; A4315; A4353; A6212; A6213; C9113; J0696; J1644; J1815; J2274; J2543; J3370; J7030; P9016

== ENCOUNTER 2018-07-20 08:47 | Inpatient (IN) | payer MEDICARE, MEDICAID ==
[~2018-07-20] VITALS: Ht 165.1 cm; Wt 88.6 kg
[~2018-07-20 08:47] MED LIST changes: -ASPI-1265 PO; -CLOP75TA16 PO; -ISOS20TA8 PO; +LISI-600 PO; -LISI10TA4 PO; +POTA20TA10 PO; -pantoprazole 40 MG vial IV SCH
[2018-07-20] MEDS ORDERED: ondansetron/PF 4mg/2ml inj IV ONE (09:05)
[2018-07-20] MEDS ORDERED: furosemide 10 MG/1 ML 10ml inj IV ONE (09:05)
[2018-07-20 10:13] LABS: BASOPHILS % (AUTO) 0.8 % (0-1); EOSINOPHILS # (AUTO) 0.3 X10'3 (0-0.9); EOSINOPHILS % (AUTO) 5.1 % (0-6); HEMATOCRIT 25.6 % (42.0-52.0); HEMOGLOBIN 8.6 g/dl (14.0-17.9); LYMPHOCYTES # (AUTO) 1.3 X10'3 (1.1-4.8); LYMPHOCYTES % (AUTO) 25.2 % (21-51); MEAN CORPUSCULAR HEMOGLOBIN 30.7 PG (27.0-31.0); MEAN CORPUSCULAR HGB CONC 33.5 % (33.0-36.5); MEAN CORPUSCULAR VOLUME 91.7 FL (78-98); MEAN PLATELET VOLUME 9.1 FL (7.4-10.4); MONOCYTES # (AUTO) 0.3 X10'3 (0-0.9); MONOCYTES % (AUTO) 6.7 % (2-12); NEUTROPHILS # (AUTO) 3.2 X10'3 (1.8-7.7); NEUTROPHILS % (AUTO) 62.2 % (42-75); PLATELET COUNT 172 X10'3 (140-440); RED CELL DISTRIBUTION WIDTH 18.1 % (11.5-14.5); WHITE BLOOD COUNT 5.2 X10'3 (4.5-11.0)
[2018-07-20 10:22] LABS: ALANINE AMINOTRANSFERASE 19 U/L (12-78); ALBUMIN 2.1 G/DL (3.4-5.0); ALBUMIN/GLOBULIN RATIO 0.6 (1.1-1.5); ALKALINE PHOSPHATASE 67 IU/L (46-116); ANION GAP 12 (8-16); ASPARTATE AMINO TRANSFERASE 29 U/L (10-37); BILIRUBIN,TOTAL 0.4 MG/DL (0.1-1.0); BLOOD UREA NITROGEN 23 MG/DL (7-18); BUN/CREATININE RATIO 7.8 (5.4-32.0); CALCIUM 8.1 MG/DL (8.5-10.1); CHLORIDE 109 MMOL/L (99-107); CREATININE 2.94 MG/DL (0.60-1.10); GLUCOSE 103 MG/DL (70-104); POTASSIUM 3.3 MMOL/L (3.5-5.1); SODIUM 144 MMOL/L (135-145); TOTAL CARBON DIOXIDE 23.5 MMOL/L (24-32); TOTAL PROTEIN 5.5 G/DL (6.4-8.2); eGFR 20 ML/MIN
[2018-07-20 10:44] LABS: ANISOCYTOSIS 2+; PLATELET ESTIMATE NORMAL
[2018-07-20 11:09] LABS: CLARITY,URINE Clear (Clear); COLOR,URINE Yellow (Yellow); GLUCOSE, URINE Negative (Neg); KETONES,URINE Negative (Neg); LEUKOCYTE ESTERASE ,URINE Negative (Neg); NITRITES, URINE Negative (Neg); OCCULT BLOOD,URINE Small (Neg); PROTEIN,URINE Negative (Neg); UROBILINOGEN,URINE 0.2 E.U/dL (0.2-1.0)
[2018-07-20 11:21] LABS: UA COLLECTION TYPE STRAIGHT CATH
[2018-07-20 11:27] LABS: BACTERIA,URINE NONE SEEN /HPF (Neg); WBC,URINE 0-4 /HPF (0-4)
[2018-07-20 11:28] LABS: SQUAMOUS EPITHELIAL CELL,UR FEW /LPF (FEW)
[2018-07-20] MEDS ORDERED: acetaminophen 325mg tablet PO PRN (11:30)
[2018-07-20] MEDS ORDERED: magnesium 4gm in 100ml NS 100 ML IV PRN (11:30)
[2018-07-20] MEDS ORDERED: potassium Cl 20 mEq SR tablet PO PRN (11:30)
[2018-07-20] MEDS ORDERED: ondansetron/PF 4mg/2ml inj IV PRN (11:30)
[2018-07-20] MEDS ORDERED: magnesium 1gm/100ml D5W IVPB 100 ML IV PRN (11:30)
[2018-07-20] MEDS ORDERED: potassium Cl 40MEQ/NS 500ml 500 ML IV PRN ×2 (11:30)
[2018-07-20] MEDS ORDERED: mag hydrox/Alum hydrox/simeth 30ml oral suspension PO PRN (11:30)
[2018-07-20] MEDS ORDERED: magnesium hydroxide 30ml (MOM) UD suspension PO PRN (11:30)
[2018-07-20] MEDS ORDERED: magnesium Cl slow-release 64mg tablet PO PRN (11:30)
[2018-07-20] MEDS: furosemide 40mg/4ml inj IV SCH ×2 (11:45→19:31)
[2018-07-20 14:55] VITALS: BP 137/59
[2018-07-20] MEDS: cefepime 1GM/NS ADD-VANTAGE 100 ML IV SCH (15:46)
[2018-07-20 17:00] VITALS: BP 95/47
[2018-07-20 19:00] VITALS: BP 117/60
[2018-07-20] MEDS: potassium Cl 20 mEq SR tablet PO PRN (19:31)
[2018-07-20 23:00] VITALS: BP 125/63
[2018-07-21 00:47] LABS: CLARITY,URINE CLEAR (Clear); COLOR,URINE STRAW (Yellow); GLUCOSE, URINE NEGATIVE (Neg); KETONES,URINE NEGATIVE (Neg); LEUKOCYTE ESTERASE ,URINE SMALL (Neg); NITRITES, URINE NEGATIVE (Neg); OCCULT BLOOD,URINE LARGE (Neg); PH,URINE 5.5 (4.8-8.0); PROTEIN,URINE NEGATIVE (Neg); UROBILINOGEN,URINE 0.2 E.U/dL (0.2-1.0)
[2018-07-21] MEDS: cefepime 1GM/NS ADD-VANTAGE 100 ML IV SCH ×4 (00:50→23:59)
[2018-07-21 00:54] LABS: UA COLLECTION TYPE URINAL
[2018-07-21 00:56] LABS: BACTERIA,URINE NONE SEEN /HPF (Neg); SQUAMOUS EPITHELIAL CELL,UR NONE SEEN /LPF (FEW); WBC,URINE 0-4 /HPF (0-4)
[2018-07-21] MEDS: potassium Cl 20 mEq SR tablet PO PRN (02:51)
[2018-07-21 03:00] VITALS: BP 137/72
[2018-07-21 04:53] LABS: BASOPHILS # (AUTO) 0.1 X10'3 (0-0.2); EOSINOPHILS # (AUTO) 0.3 X10'3 (0-0.9); EOSINOPHILS % (AUTO) 4.7 % (0-6); HEMOGLOBIN 8.3 g/dl (14.0-17.9); LYMPHOCYTES # (AUTO) 1.3 X10'3 (1.1-4.8); MEAN CORPUSCULAR HEMOGLOBIN 30.7 PG (27.0-31.0); MEAN CORPUSCULAR HGB CONC 33.2 % (33.0-36.5); MEAN CORPUSCULAR VOLUME 92.4 FL (78-98); MEAN PLATELET VOLUME 9.2 FL (7.4-10.4); MONOCYTES # (AUTO) 0.4 X10'3 (0-0.9); MONOCYTES % (AUTO) 6.7 % (2-12); NEUTROPHILS # (AUTO) 4.3 X10'3 (1.8-7.7); NEUTROPHILS % (AUTO) 66.6 % (42-75); PLATELET COUNT 182 X10'3 (140-440); RED BLOOD COUNT 2.71 X10'6 (4.70-6.10); RED CELL DISTRIBUTION WIDTH 18.3 % (11.5-14.5); WHITE BLOOD COUNT 6.4 X10'3 (4.5-11.0)
[2018-07-21 05:15] LABS: ALANINE AMINOTRANSFERASE 20 U/L (12-78); ALBUMIN 2.1 G/DL (3.4-5.0); ALBUMIN/GLOBULIN RATIO 0.7 (1.1-1.5); ALKALINE PHOSPHATASE 62 IU/L (46-116); ANION GAP 10 (8-16); ASPARTATE AMINO TRANSFERASE 26 U/L (10-37); BILIRUBIN,TOTAL 0.5 MG/DL (0.1-1.0); BLOOD UREA NITROGEN 24 MG/DL (7-18); BUN/CREATININE RATIO 7.3 (5.4-32.0); CALCIUM 8.3 MG/DL (8.5-10.1); CHLORIDE 110 MMOL/L (99-107); GLUCOSE 99 MG/DL (70-104); POTASSIUM 4.2 MMOL/L (3.5-5.1); SODIUM 144 MMOL/L (135-145); TOTAL CARBON DIOXIDE 24.2 MMOL/L (24-32); TOTAL PROTEIN 5.3 G/DL (6.4-8.2); eGFR 18 ML/MIN
[2018-07-21 06:13] LABS: PLATELET ESTIMATE NORMAL
[2018-07-21 06:15] LABS: ANISOCYTOSIS 2+
[2018-07-21 07:00] VITALS: BP 133/69
[2018-07-21] MEDS: K and/or MAG REPLACEMENT MC SCH (08:00)
[2018-07-21] MEDS: furosemide 40mg/4ml inj IV SCH ×2 (08:50→20:12)
[2018-07-21 11:00] VITALS: BP 145/70
[2018-07-21 15:00] VITALS: BP 114/58
[2018-07-21 16:08] LABS: FERRITIN 229 NG/ML (26-388)
[2018-07-21 16:09] LABS: % IRON SATURATION 24 % (11-46); IRON 46 UG/DL (53-167); TOTAL IRON BINDING CAPACITY 190 UG/DL (259-388)
[2018-07-21] MEDS: epoetin 20,000 units/ml inj SQ SCH (17:16)
[2018-07-21 19:00] VITALS: BP 116/46
[2018-07-21 23:00] VITALS: BP 129/57
[2018-07-22 03:00] VITALS: BP 124/54
[2018-07-22 05:06] LABS: BASOPHILS # (AUTO) 0.1 X10'3 (0-0.2); BASOPHILS % (AUTO) 1.1 % (0-1); EOSINOPHILS # (AUTO) 0.3 X10'3 (0-0.9); EOSINOPHILS % (AUTO) 4.6 % (0-6); HEMATOCRIT 23.6 % (42.0-52.0); HEMOGLOBIN 7.9 g/dl (14.0-17.9); LYMPHOCYTES # (AUTO) 1.1 X10'3 (1.1-4.8); LYMPHOCYTES % (AUTO) 17.5 % (21-51); MEAN CORPUSCULAR HGB CONC 33.5 % (33.0-36.5); MEAN CORPUSCULAR VOLUME 92.6 FL (78-98); MEAN PLATELET VOLUME 9.2 FL (7.4-10.4); MONOCYTES # (AUTO) 0.4 X10'3 (0-0.9); MONOCYTES % (AUTO) 6.3 % (2-12); NEUTROPHILS # (AUTO) 4.4 X10'3 (1.8-7.7); NEUTROPHILS % (AUTO) 70.5 % (42-75); PLATELET COUNT 189 X10'3 (140-440); RED BLOOD COUNT 2.54 X10'6 (4.70-6.10); RED CELL DISTRIBUTION WIDTH 18.5 % (11.5-14.5); WHITE BLOOD COUNT 6.2 X10'3 (4.5-11.0)
[2018-07-22 05:32] LABS: ALANINE AMINOTRANSFERASE 13 U/L (12-78); ALBUMIN 1.9 G/DL (3.4-5.0); ALBUMIN/GLOBULIN RATIO 0.6 (1.1-1.5); ALKALINE PHOSPHATASE 59 IU/L (46-116); ANION GAP 16 (8-16); ASPARTATE AMINO TRANSFERASE 25 U/L (10-37); BILIRUBIN,TOTAL 0.4 MG/DL (0.1-1.0); BLOOD UREA NITROGEN 27 MG/DL (7-18); CALCIUM 8.1 MG/DL (8.5-10.1); CHLORIDE 109 MMOL/L (99-107); CREATININE 3.84 MG/DL (0.60-1.10); GLUCOSE 85 MG/DL (70-104); MAGNESIUM 1.7 MG/DL (1.5-2.4); POTASSIUM 3.7 MMOL/L (3.5-5.1); SODIUM 147 MMOL/L (135-145); TOTAL CARBON DIOXIDE 22.5 MMOL/L (24-32); TOTAL PROTEIN 5.1 G/DL (6.4-8.2); eGFR 15 ML/MIN
[2018-07-22 06:00] VITALS: BP 124/62
[2018-07-22 07:28] LABS: ANISOCYTOSIS 2+; PLATELET ESTIMATE NORMAL
[2018-07-22] MEDS: K and/or MAG REPLACEMENT MC SCH (08:00)
[2018-07-22] MEDS: metolazone 2.5mg tablet PO SCH (08:06)
[2018-07-22] MEDS: cefepime 1GM/NS ADD-VANTAGE 100 ML IV SCH ×2 (09:00→17:14)
[2018-07-22] MEDS: furosemide 40mg/4ml inj IV SCH ×2 (09:00→20:59)
[2018-07-22 11:00] VITALS: BP 126/64
[2018-07-22 15:00] VITALS: BP 105/58
[2018-07-22 18:00] VITALS: BP 105/58
[2018-07-22] MEDS: lactobacillus rhamnosus 10,000 MMU CELLS/CAPSULE PO SCH (20:58)
[2018-07-22 22:00] VITALS: BP 125/68
[2018-07-23] MEDS: cefepime 1GM/NS ADD-VANTAGE 100 ML IV SCH ×3 (00:10→16:58)
[2018-07-23 02:00] VITALS: BP 119/61
[2018-07-23 05:35] LABS: BASOPHILS # (AUTO) 0.1 X10'3 (0-0.2); EOSINOPHILS # (AUTO) 0.3 X10'3 (0-0.9); EOSINOPHILS % (AUTO) 4.8 % (0-6); HEMATOCRIT 24.6 % (42.0-52.0); HEMOGLOBIN 8.3 g/dl (14.0-17.9); LYMPHOCYTES # (AUTO) 1.3 X10'3 (1.1-4.8); LYMPHOCYTES % (AUTO) 18.3 % (21-51); MEAN CORPUSCULAR HEMOGLOBIN 31.4 PG (27.0-31.0); MEAN CORPUSCULAR HGB CONC 33.7 % (33.0-36.5); MEAN CORPUSCULAR VOLUME 93.2 FL (78-98); MEAN PLATELET VOLUME 9.1 FL (7.4-10.4); MONOCYTES # (AUTO) 0.5 X10'3 (0-0.9); NEUTROPHILS # (AUTO) 4.9 X10'3 (1.8-7.7); NEUTROPHILS % (AUTO) 68.9 % (42-75); PLATELET COUNT 181 X10'3 (140-440); RED BLOOD COUNT 2.64 X10'6 (4.70-6.10); RED CELL DISTRIBUTION WIDTH 19.1 % (11.5-14.5); WHITE BLOOD COUNT 7.1 X10'3 (4.5-11.0)
[2018-07-23 06:00] VITALS: BP 125/48
[2018-07-23] MEDS: K and/or MAG REPLACEMENT MC SCH (08:00)
[2018-07-23 08:10] LABS: ANISOCYTOSIS 2+; PLATELET ESTIMATE NORMAL
[2018-07-23 08:11] LABS: POIKILOCYTOSIS FEW; POLYCHROMASIA FEW
[2018-07-23] MEDS: aspirin 81mg tablet.DR PO SCH (08:38)
[2018-07-23] MEDS: metoprolol tartrate 12.5mg (1/2 tablet) PO SCH (08:38)
[2018-07-23] MEDS: furosemide 40mg/4ml inj IV SCH ×2 (08:38→21:57)
[2018-07-23] MEDS: metolazone 2.5mg tablet PO SCH (08:38)
[2018-07-23] MEDS: lactobacillus rhamnosus 10,000 MMU CELLS/CAPSULE PO SCH ×2 (08:38→21:56)
[2018-07-23 08:43] LABS: ALANINE AMINOTRANSFERASE 18 U/L (12-78); ALBUMIN 1.9 G/DL (3.4-5.0); ALBUMIN/GLOBULIN RATIO 0.6 (1.1-1.5); ANION GAP 12 (8-16); ASPARTATE AMINO TRANSFERASE 23 U/L (10-37); BILIRUBIN,TOTAL 0.5 MG/DL (0.1-1.0); BLOOD UREA NITROGEN 31 MG/DL (7-18); BUN/CREATININE RATIO 6.8 (5.4-32.0); CALCIUM 8.3 MG/DL (8.5-10.1); CHLORIDE 108 MMOL/L (99-107); CREATININE 4.55 MG/DL (0.60-1.10); GLUCOSE 82 MG/DL (70-104); MAGNESIUM 1.9 MG/DL (1.5-2.4); POTASSIUM 3.6 MMOL/L (3.5-5.1); SODIUM 140 MMOL/L (135-145); TOTAL CARBON DIOXIDE 20.3 MMOL/L (24-32); TOTAL PROTEIN 5.3 G/DL (6.4-8.2); eGFR 12 ML/MIN
[2018-07-23 08:44] LABS: ALKALINE PHOSPHATASE 60 IU/L (46-116)
[2018-07-23 11:00] VITALS: BP 104/61
[2018-07-23] MEDS: epoetin 20,000 units/ml inj SQ SCH (11:54)
[2018-07-23 15:00] VITALS: BP 120/60
[2018-07-23 18:00] VITALS: BP 128/67
[2018-07-23 22:00] VITALS: BP 135/60
[2018-07-24] VITALS (7 sets, daily range): BP systolic 92–138; BP diastolic 45–87
[2018-07-24] MEDS: cefepime 1GM/NS ADD-VANTAGE 100 ML IV SCH ×3 (00:57→16:00)
[2018-07-24] MEDS: furosemide 40mg/4ml inj IV SCH ×2 (08:00→19:38)
[2018-07-24] MEDS ORDERED: heparin 1,000unit/ml 10ml vial 10 ML IV ONE (08:00)
[2018-07-24] MEDS: aspirin 81mg tablet.DR PO SCH (08:00)
[2018-07-24] MEDS ORDERED: heparin 1,000 units/ml 10ml inj HE ONE ×2 (08:00)
[2018-07-24] MEDS: K and/or MAG REPLACEMENT MC SCH (08:00)
[2018-07-24] MEDS: metolazone 2.5mg tablet PO SCH (08:00)
[2018-07-24] MEDS ORDERED: albumin (human) 25% 100ml IV 100 ML IV PRN (08:00)
[2018-07-24] MEDS ORDERED: heparin 1,000 units/ml 10ml inj IV ONE (08:00)
[2018-07-24] MEDS: metoprolol tartrate 12.5mg (1/2 tablet) PO SCH (08:00)
[2018-07-24] MEDS: lactobacillus rhamnosus 10,000 MMU CELLS/CAPSULE PO SCH ×2 (08:00→19:39)
[2018-07-24] MEDS ORDERED: epoetin 20,000 units/ml inj IV ONE (08:00)
[2018-07-24 08:34] LABS: BASOPHILS % (AUTO) 0.6 % (0-1); EOSINOPHILS # (AUTO) 0.2 X10'3 (0-0.9); EOSINOPHILS % (AUTO) 2.8 % (0-6); HEMATOCRIT 28.1 % (42.0-52.0); HEMOGLOBIN 9.2 g/dl (14.0-17.9); LYMPHOCYTES # (AUTO) 0.7 X10'3 (1.1-4.8); LYMPHOCYTES % (AUTO) 9.4 % (21-51); MEAN CORPUSCULAR HEMOGLOBIN 30.9 PG (27.0-31.0); MEAN CORPUSCULAR HGB CONC 32.9 % (33.0-36.5); MEAN CORPUSCULAR VOLUME 94.2 FL (78-98); MEAN PLATELET VOLUME 9.3 FL (7.4-10.4); MONOCYTES # (AUTO) 0.5 X10'3 (0-0.9); MONOCYTES % (AUTO) 6.6 % (2-12); NEUTROPHILS # (AUTO) 5.8 X10'3 (1.8-7.7); NEUTROPHILS % (AUTO) 80.6 % (42-75); PLATELET COUNT 180 X10'3 (140-440); RED BLOOD COUNT 2.99 X10'6 (4.70-6.10); WHITE BLOOD COUNT 7.1 X10'3 (4.5-11.0)
[2018-07-24 09:33] LABS: ALANINE AMINOTRANSFERASE 17 U/L (12-78); ALBUMIN 1.9 G/DL (3.4-5.0); ALBUMIN/GLOBULIN RATIO 0.5 (1.1-1.5); ALKALINE PHOSPHATASE 68 IU/L (46-116); ANION GAP 13 (8-16); ASPARTATE AMINO TRANSFERASE 25 U/L (10-37); BILIRUBIN,TOTAL 0.5 MG/DL (0.1-1.0); BLOOD UREA NITROGEN 35 MG/DL (7-18); BUN/CREATININE RATIO 6.1 (5.4-32.0); CHLORIDE 107 MMOL/L (99-107); CREATININE 5.71 MG/DL (0.60-1.10); GLUCOSE 81 MG/DL (70-104); SODIUM 141 MMOL/L (135-145); TOTAL CARBON DIOXIDE 20.8 MMOL/L (24-32); TOTAL PROTEIN 5.6 G/DL (6.4-8.2); eGFR 9 ML/MIN
[2018-07-24 10:49] LABS: ANISOCYTOSIS 2+; PLATELET ESTIMATE NORMAL; POIKILOCYTOSIS 1+; POLYCHROMASIA 1+
[2018-07-24] MEDS ORDERED: LIDOcaine 1%/PF 5ML 10 MG/ML VIAL SQ ONE (12:10)
[2018-07-24] MEDS ORDERED: midazolam 2 mg/2 ml injection IV PRN (12:10)
[2018-07-24] MEDS ORDERED: heparin 1,000 units/ml 10ml inj ICATH ONE (12:10)
[2018-07-24] MEDS ORDERED: fentaNYL/PF 50MCG/1 ML 2ML syringe IV PRN (12:10)
[2018-07-24] MEDS ORDERED: LIDOcaine 1%/PF 5ML 10 MG/ML VIAL ONE (12:16)
[2018-07-24] MEDS ORDERED: midazolam 2 mg/2 ml injection ONE (12:40)
[2018-07-24] MEDS ORDERED: heparin 1,000unit/ml 10ml vial 10 ML ONE (12:40)
[2018-07-24] MEDS ORDERED: fentaNYL/PF 50MCG/1 ML 2ML syringe ONE (12:41)
[2018-07-25 02:00] VITALS: BP 106/39
[2018-07-25 06:00] VITALS: BP 123/49
[2018-07-25] MEDS ORDERED: heparin 1,000unit/ml 10ml vial 10 ML IV ONE (07:07)
[2018-07-25] MEDS ORDERED: epoetin 20,000 units/ml inj IV ONE (07:10)
[2018-07-25] MEDS ORDERED: heparin 1,000 units/ml 10ml inj IV ONE (07:10)
[2018-07-25] MEDS ORDERED: albumin (human) 25% 100ml IV 100 ML IV PRN (07:10)
[2018-07-25] MEDS ORDERED: heparin 1,000 units/ml 10ml inj HE ONE ×2 (07:15)
[2018-07-25 07:18] LABS: BASOPHILS % (AUTO) 0.8 % (0-1); EOSINOPHILS # (AUTO) 0.1 X10'3 (0-0.9); EOSINOPHILS % (AUTO) 2.1 % (0-6); HEMOGLOBIN 8.4 g/dl (14.0-17.9); LYMPHOCYTES # (AUTO) 0.5 X10'3 (1.1-4.8); LYMPHOCYTES % (AUTO) 9.6 % (21-51); MEAN CORPUSCULAR HEMOGLOBIN 31.1 PG (27.0-31.0); MEAN CORPUSCULAR HGB CONC 33.5 % (33.0-36.5); MEAN CORPUSCULAR VOLUME 92.9 FL (78-98); MEAN PLATELET VOLUME 8.8 FL (7.4-10.4); MONOCYTES # (AUTO) 0.4 X10'3 (0-0.9); MONOCYTES % (AUTO) 8.2 % (2-12); NEUTROPHILS # (AUTO) 3.8 X10'3 (1.8-7.7); NEUTROPHILS % (AUTO) 79.3 % (42-75); PLATELET COUNT 151 X10'3 (140-440); RED BLOOD COUNT 2.69 X10'6 (4.70-6.10); RED CELL DISTRIBUTION WIDTH 19.9 % (11.5-14.5); WHITE BLOOD COUNT 4.8 X10'3 (4.5-11.0)
[2018-07-25 07:46] LABS: ANISOCYTOSIS 2+; LARGE PLATELETS FEW; PLATELET ESTIMATE NORMAL; POIKILOCYTOSIS FEW; POLYCHROMASIA 1+
[2018-07-25] MEDS: metolazone 2.5mg tablet PO SCH (08:00)
[2018-07-25] MEDS: K and/or MAG REPLACEMENT MC SCH (08:00)
[2018-07-25] MEDS: furosemide 40mg/4ml inj IV SCH (08:00)
[2018-07-25] MEDS: metoprolol tartrate 12.5mg (1/2 tablet) PO SCH (08:00)
[2018-07-25 08:01] LABS: ALANINE AMINOTRANSFERASE 19 U/L (12-78); ALBUMIN 1.7 G/DL (3.4-5.0); ALBUMIN/GLOBULIN RATIO 0.5 (1.1-1.5); ALKALINE PHOSPHATASE 66 IU/L (46-116); ANION GAP 11 (8-16); ASPARTATE AMINO TRANSFERASE 26 U/L (10-37); BILIRUBIN,TOTAL 0.4 MG/DL (0.1-1.0); BLOOD UREA NITROGEN 21 MG/DL (7-18); BUN/CREATININE RATIO 5.1 (5.4-32.0); CALCIUM 8.1 MG/DL (8.5-10.1); CHLORIDE 105 MMOL/L (99-107); GLUCOSE 84 MG/DL (70-104); MAGNESIUM 1.9 MG/DL (1.5-2.4); POTASSIUM 3.9 MMOL/L (3.5-5.1); SODIUM 141 MMOL/L (135-145); TOTAL CARBON DIOXIDE 24.6 MMOL/L (24-32); TOTAL PROTEIN 5.1 G/DL (6.4-8.2); eGFR 14 ML/MIN
[2018-07-25] MEDS: lactobacillus rhamnosus 10,000 MMU CELLS/CAPSULE PO SCH ×2 (08:01→20:00)
[2018-07-25] MEDS: aspirin 81mg tablet.DR PO SCH (08:01)
[2018-07-25] MEDS: cefepime 1GM/NS ADD-VANTAGE 100 ML IV SCH ×3 (08:04→16:58)
[2018-07-25 11:00] VITALS: BP 125/50
[2018-07-25 15:00] VITALS: BP 99/39
[2018-07-25 19:00] VITALS: BP 87/66
[2018-07-25 23:00] VITALS: BP 116/57
[2018-07-26] MEDS: cefepime 1GM/NS ADD-VANTAGE 100 ML IV SCH ×4 (00:37→23:34)
[2018-07-26 03:00] VITALS: BP 140/70
[2018-07-26 05:15] LABS: BASOPHILS % (AUTO) 0.6 % (0-1); EOSINOPHILS # (AUTO) 0.1 X10'3 (0-0.9); EOSINOPHILS % (AUTO) 1.9 % (0-6); HEMATOCRIT 25.3 % (42.0-52.0); HEMOGLOBIN 8.5 g/dl (14.0-17.9); LYMPHOCYTES # (AUTO) 0.7 X10'3 (1.1-4.8); MEAN CORPUSCULAR HEMOGLOBIN 31.3 PG (27.0-31.0); MEAN CORPUSCULAR HGB CONC 33.7 % (33.0-36.5); MEAN CORPUSCULAR VOLUME 92.8 FL (78-98); MEAN PLATELET VOLUME 8.8 FL (7.4-10.4); MONOCYTES # (AUTO) 0.5 X10'3 (0-0.9); MONOCYTES % (AUTO) 11.1 % (2-12); NEUTROPHILS # (AUTO) 2.8 X10'3 (1.8-7.7); NEUTROPHILS % (AUTO) 69.4 % (42-75); PLATELET COUNT 130 X10'3 (140-440); RED BLOOD COUNT 2.73 X10'6 (4.70-6.10); RED CELL DISTRIBUTION WIDTH 19.8 % (11.5-14.5); WHITE BLOOD COUNT 4.1 X10'3 (4.5-11.0)
[2018-07-26 05:44] LABS: ANION GAP 12 (8-16); BLOOD UREA NITROGEN 13 MG/DL (7-18); BUN/CREATININE RATIO 4.7 (5.4-32.0); CALCIUM 7.9 MG/DL (8.5-10.1); CHLORIDE 102 MMOL/L (99-107); CREATININE 2.75 MG/DL (0.60-1.10); GLUCOSE 69 MG/DL (70-104); MAGNESIUM 1.7 MG/DL (1.5-2.4); SODIUM 142 MMOL/L (135-145); TOTAL CARBON DIOXIDE 27.6 MMOL/L (24-32); eGFR 22 ML/MIN
[2018-07-26 05:54] LABS: POTASSIUM 2.8 MMOL/L (3.5-5.1)
[2018-07-26 05:59] LABS: ANISOCYTOSIS 2+; PLATELET ESTIMATE DECREASED
[2018-07-26 06:00] VITALS: BP 139/58
[2018-07-26 06:00] LABS: LARGE PLATELETS FEW; POLYCHROMASIA FEW
[2018-07-26] MEDS: K and/or MAG REPLACEMENT MC SCH (08:00)
[2018-07-26] MEDS: furosemide 40mg/4ml inj IV SCH (08:00)
[2018-07-26] MEDS: lactobacillus rhamnosus 10,000 MMU CELLS/CAPSULE PO SCH ×2 (10:48→20:30)
[2018-07-26] MEDS: aspirin 81mg tablet.DR PO SCH (10:48)
[2018-07-26] MEDS: metoprolol tartrate 12.5mg (1/2 tablet) PO SCH (10:48)
[2018-07-26] MEDS: metolazone 2.5mg tablet PO SCH (10:49)
[2018-07-26 12:44] VITALS: BP 109/49
[2018-07-26 15:00] VITALS: BP 114/60
[2018-07-26 19:00] VITALS: BP 132/49
[2018-07-26 23:00] VITALS: BP 126/46
[2018-07-27 03:00] VITALS: BP 139/46
[2018-07-27 06:00] VITALS: BP 141/62
[2018-07-27] MEDS: K and/or MAG REPLACEMENT MC SCH (08:00)
[2018-07-27 09:39] LABS: HBSAG SCREEN Negative (Negative)
[2018-07-27 09:49] LABS: BASOPHILS % (AUTO) 0.3 % (0-1); EOSINOPHILS # (AUTO) 0.2 X10'3 (0-0.9); EOSINOPHILS % (AUTO) 3.9 % (0-6); HEMATOCRIT 26.7 % (42.0-52.0); HEMOGLOBIN 8.8 g/dl (14.0-17.9); LYMPHOCYTES # (AUTO) 1.2 X10'3 (1.1-4.8); LYMPHOCYTES % (AUTO) 24.4 % (21-51); MEAN CORPUSCULAR HEMOGLOBIN 30.6 PG (27.0-31.0); MEAN CORPUSCULAR HGB CONC 32.8 % (33.0-36.5); MEAN CORPUSCULAR VOLUME 93.4 FL (78-98); MEAN PLATELET VOLUME 8.6 FL (7.4-10.4); MONOCYTES # (AUTO) 0.8 X10'3 (0-0.9); MONOCYTES % (AUTO) 15.4 % (2-12); NEUTROPHILS # (AUTO) 2.8 X10'3 (1.8-7.7); PLATELET COUNT 130 X10'3 (140-440); RED BLOOD COUNT 2.85 X10'6 (4.70-6.10); RED CELL DISTRIBUTION WIDTH 19.7 % (11.5-14.5)
[2018-07-27] MEDS: epoetin 20,000 units/ml inj SQ SCH (10:00)
[2018-07-27] MEDS: furosemide 40mg/4ml inj IV SCH (10:01)
[2018-07-27] MEDS: lactobacillus rhamnosus 10,000 MMU CELLS/CAPSULE PO SCH ×2 (10:01→19:28)
[2018-07-27] MEDS: cefepime 1GM/NS ADD-VANTAGE 100 ML IV SCH ×2 (10:01→18:43)
[2018-07-27] MEDS: aspirin 81mg tablet.DR PO SCH (10:01)
[2018-07-27] MEDS: metoprolol tartrate 12.5mg (1/2 tablet) PO SCH (10:01)
[2018-07-27] MEDS: metolazone 2.5mg tablet PO SCH (10:02)
[2018-07-27 10:04] LABS: ANISOCYTOSIS 2+; LARGE PLATELETS FEW; PLATELET ESTIMATE DECREASED; POLYCHROMASIA 1+
[2018-07-27 10:04] LABS: ALANINE AMINOTRANSFERASE 14 U/L (12-78); ALBUMIN 1.9 G/DL (3.4-5.0); ALBUMIN/GLOBULIN RATIO 0.6 (1.1-1.5); ALKALINE PHOSPHATASE 71 IU/L (46-116); ANION GAP 11 (8-16); ASPARTATE AMINO TRANSFERASE 34 U/L (10-37); BILIRUBIN,TOTAL 0.5 MG/DL (0.1-1.0); BLOOD UREA NITROGEN 20 MG/DL (7-18); BUN/CREATININE RATIO 6.7 (5.4-32.0); CALCIUM 8.2 MG/DL (8.5-10.1); CHLORIDE 103 MMOL/L (99-107); CREATININE 2.98 MG/DL (0.60-1.10); GLUCOSE 79 MG/DL (70-104); SODIUM 144 MMOL/L (135-145); TOTAL CARBON DIOXIDE 29.7 MMOL/L (24-32); TOTAL PROTEIN 5.3 G/DL (6.4-8.2); eGFR 20 ML/MIN
[2018-07-27 10:10] LABS: POTASSIUM 2.5 MMOL/L (3.5-5.1)
[2018-07-27] MEDS ORDERED: albumin (Human) 5% 250ml 250 ML IV PRN (10:35)
[2018-07-27] MEDS ORDERED: heparin 1,000unit/ml 10ml vial 10 ML IV ONE (10:35)
[2018-07-27] MEDS ORDERED: heparin 1,000 units/ml 10ml inj HE ONE ×2 (10:40)
[2018-07-27 11:00] VITALS: BP 121/56
[2018-07-27 15:00] VITALS: BP 131/62
[2018-07-27 19:00] VITALS: BP 129/58
[2018-07-27 23:00] VITALS: BP 135/53
[2018-07-28] MEDS: cefepime 1GM/NS ADD-VANTAGE 100 ML IV SCH ×2 (00:59→07:29)
[2018-07-28 03:00] VITALS: BP 141/57
[2018-07-28 06:00] VITALS: BP 147/55
[2018-07-28] MEDS: furosemide 40mg/4ml inj IV SCH (07:29)
[2018-07-28] MEDS: epoetin 20,000 units/ml inj SQ SCH (08:00)
[2018-07-28] MEDS: aspirin 81mg tablet.DR PO SCH (08:00)
[2018-07-28] MEDS: lactobacillus rhamnosus 10,000 MMU CELLS/CAPSULE PO SCH (08:00)
[2018-07-28] MEDS: metoprolol tartrate 12.5mg (1/2 tablet) PO SCH (08:00)
[2018-07-28] MEDS: metolazone 2.5mg tablet PO SCH (08:00)
[2018-07-28] MEDS: K and/or MAG REPLACEMENT MC SCH (08:00)
[2018-07-28 09:10] LABS: BASOPHILS % (AUTO) 0.7 % (0-1); EOSINOPHILS # (AUTO) 0.3 X10'3 (0-0.9); EOSINOPHILS % (AUTO) 6.1 % (0-6); HEMATOCRIT 27.1 % (42.0-52.0); HEMOGLOBIN 8.9 g/dl (14.0-17.9); LYMPHOCYTES # (AUTO) 1.1 X10'3 (1.1-4.8); LYMPHOCYTES % (AUTO) 21.7 % (21-51); MEAN CORPUSCULAR HEMOGLOBIN 30.7 PG (27.0-31.0); MEAN CORPUSCULAR HGB CONC 32.8 % (33.0-36.5); MEAN CORPUSCULAR VOLUME 93.5 FL (78-98); MEAN PLATELET VOLUME 8.5 FL (7.4-10.4); MONOCYTES # (AUTO) 0.8 X10'3 (0-0.9); MONOCYTES % (AUTO) 14.7 % (2-12); NEUTROPHILS # (AUTO) 2.9 X10'3 (1.8-7.7); NEUTROPHILS % (AUTO) 56.8 % (42-75); PLATELET COUNT 109 X10'3 (140-440); RED CELL DISTRIBUTION WIDTH 19.2 % (11.5-14.5); WHITE BLOOD COUNT 5.2 X10'3 (4.5-11.0)
[2018-07-28] MEDS ORDERED: potassium chloride 8mEq ER tablet PO STA (09:39)
[2018-07-28] MEDS ORDERED: folic acid/vitamin B complex w/vitamin C 0.8mg tablet PO SCH (09:40)
[2018-07-28 09:42] LABS: PLATELET ESTIMATE DECREASED
[2018-07-28 09:43] LABS: ANISOCYTOSIS 2+; POIKILOCYTOSIS FEW; POLYCHROMASIA 1+
[2018-07-28 11:00] VITALS: BP 112/55
== END 2018-07-28 17:48 | DRG 673 ==
LOC: ER 08:48 → ED HOLD 11:30 → EDBEDREQ 12:35 → PCU 3S 15:00
PROVIDERS: ADMIT Internal Medicine; ATTEND Internal Medicine
PROC: 0JH63XZ Insertion of Tunneled Vascular Access Device into Chest Subcutaneous Tissue and Fascia, Percutaneous Approach (ICD-10-PCS; principal; 2018-07-24)
PROC: 02H633Z Insertion of Infusion Device into Right Atrium, Percutaneous Approach (ICD-10-PCS; 2018-07-24)
PROC: B244ZZZ Ultrasonography of Right Heart (ICD-10-PCS; 2018-07-24)
PROC: 5A1D70Z Performance of Urinary Filtration, Intermittent, Less than 6 Hours Per Day (ICD-10-PCS; 2018-07-24)
PROC: 5A1D70Z Performance of Urinary Filtration, Intermittent, Less than 6 Hours Per Day (ICD-10-PCS; 2018-07-25)
PROC: 5A1D70Z Performance of Urinary Filtration, Intermittent, Less than 6 Hours Per Day (ICD-10-PCS; 2018-07-27)
DX: N17.9 Acute kidney failure, unspecified (principal); I50.33 Acute on chronic diastolic (congestive) heart failure; G93.49 Other encephalopathy; J18.9 Pneumonia, unspecified organism; J98.11 Atelectasis; I13.0 Hypertensive heart and chronic kidney disease with heart failure and stage 1 through stage 4 chronic kidney disease, or unspecified chronic kidney disease; D50.0 Iron deficiency anemia secondary to blood loss (chronic); N18.4 Chronic kidney disease, stage 4 (severe); D63.1 Anemia in chronic kidney disease; R60.1 Generalized edema; N18.9 Chronic kidney disease, unspecified; E78.5 Hyperlipidemia, unspecified; R62.7 Adult failure to thrive; G47.33 Obstructive sleep apnea (adult) (pediatric); F03.90 Unspecified dementia, unspecified severity, without behavioral disturbance, psychotic disturbance, mood disturbance, and anxiety; I25.10 Atherosclerotic heart disease of native coronary artery without angina pectoris; Z51.5 Encounter for palliative care; Z85.820 Personal history of malignant melanoma of skin
CPT/HCPCS: 36415; 36558; 70450; 71045; 76937; 77001; 80048; 80053; 81001; 82728; 83540; 83550; 83605; 83735; 83880; 83970; 84145; 84484; 85025; 87040; 87070; 87077; 87088; 87340; 90935; 93005; 93308; 93970; 96374; 96375; 97110; 97116; 97161; 97530; 99285; A4315; A4353; A6212; A6213; A6446; A6449; A9270; C1750; C1894; G0257; J0692; J0885; J1644; J1940; J2001; J2150; J2250; J2405; J3010; J7030; P9045; P9047

== ENCOUNTER 2018-11-06 16:40 | Inpatient (IN) | payer MEDICARE, MEDICAID ==
[~2018-11-06] VITALS: Ht 162.6 cm; Wt 85.0 kg
[2018-11-06 18:04] LABS: BASOPHILS # (AUTO) 0.1 X10'3 (0-0.2); BASOPHILS % (AUTO) 1.5 % (0-1); EOSINOPHILS # (AUTO) 0.3 X10'3 (0-0.9); EOSINOPHILS % (AUTO) 4.4 % (0-6); HEMATOCRIT 32.7 % (42.0-52.0); HEMOGLOBIN 10.5 g/dl (14.0-17.9); LYMPHOCYTES # (AUTO) 2.1 X10'3 (1.1-4.8); LYMPHOCYTES % (AUTO) 26.7 % (21-51); MEAN CORPUSCULAR HGB CONC 32.1 % (33.0-36.5); MEAN CORPUSCULAR VOLUME 90.4 FL (78-98); MEAN PLATELET VOLUME 8.1 FL (7.4-10.4); MONOCYTES # (AUTO) 0.6 X10'3 (0-0.9); MONOCYTES % (AUTO) 7.6 % (2-12); NEUTROPHILS # (AUTO) 4.6 X10'3 (1.8-7.7); NEUTROPHILS % (AUTO) 59.8 % (42-75); PLATELET COUNT 192 X10'3 (140-440); RED BLOOD COUNT 3.62 X10'6 (4.70-6.10); RED CELL DISTRIBUTION WIDTH 18.2 % (11.5-14.5); WHITE BLOOD COUNT 7.7 X10'3 (4.5-11.0)
[2018-11-06] MEDS ORDERED: ondansetron/PF 4mg/2ml inj IV PRN (18:15)
[2018-11-06] MEDS ORDERED: acetaminophen 325mg tablet PO PRN (18:15)
[2018-11-06 18:19] LABS: ALANINE AMINOTRANSFERASE 12 U/L (12-78); ALBUMIN 1.9 G/DL (3.4-5.0); ALBUMIN/GLOBULIN RATIO 0.4 (1.1-1.5); ALKALINE PHOSPHATASE 67 IU/L (46-116); ANION GAP 7 (8-16); ASPARTATE AMINO TRANSFERASE 17 U/L (10-37); BILIRUBIN,TOTAL 0.5 MG/DL (0.1-1.0); BLOOD UREA NITROGEN 24 MG/DL (7-18); BUN/CREATININE RATIO 9.4 (5.4-32.0); CALCIUM 8.6 MG/DL (8.5-10.1); CHLORIDE 105 MMOL/L (99-107); CREATININE 2.55 MG/DL (0.60-1.10); GLUCOSE 105 MG/DL (70-104); PHOSPHORUS 3.4 MG/DL (2.3-4.5); POTASSIUM 3.9 MMOL/L (3.5-5.1); SODIUM 141 MMOL/L (135-145); TOTAL CARBON DIOXIDE 29.2 MMOL/L (24-32); TOTAL PROTEIN 6.4 G/DL (6.4-8.2); eGFR 24 ML/MIN
[2018-11-06] MEDS ORDERED: FURO-150 PO (20:53)
[2018-11-06] MEDS ORDERED: POTA10TA19 PO (20:53)
[2018-11-06] MEDS ORDERED: FLO0.4C PO (20:53)
[2018-11-06] MEDS ORDERED: ISOS30TA9 PO (20:53)
[2018-11-06] MEDS ORDERED: ASPI81TA52 PO (20:53)
[2018-11-07 08:07] VITALS: BP 135/73
[2018-11-07 08:42] LABS: BASOPHILS # (AUTO) 0.1 X10'3 (0-0.2); BASOPHILS % (AUTO) 1.3 % (0-1); EOSINOPHILS # (AUTO) 0.4 X10'3 (0-0.9); EOSINOPHILS % (AUTO) 7.6 % (0-6); HEMATOCRIT 32.5 % (42.0-52.0); HEMOGLOBIN 10.5 g/dl (14.0-17.9); LYMPHOCYTES # (AUTO) 1.7 X10'3 (1.1-4.8); LYMPHOCYTES % (AUTO) 29.4 % (21-51); MEAN CORPUSCULAR HEMOGLOBIN 29.4 PG (27.0-31.0); MEAN CORPUSCULAR HGB CONC 32.4 % (33.0-36.5); MEAN CORPUSCULAR VOLUME 90.8 FL (78-98); MEAN PLATELET VOLUME 8.4 FL (7.4-10.4); MONOCYTES # (AUTO) 0.5 X10'3 (0-0.9); MONOCYTES % (AUTO) 8.2 % (2-12); NEUTROPHILS # (AUTO) 3.1 X10'3 (1.8-7.7); NEUTROPHILS % (AUTO) 53.5 % (42-75); PLATELET COUNT 196 X10'3 (140-440); RED BLOOD COUNT 3.58 X10'6 (4.70-6.10); RED CELL DISTRIBUTION WIDTH 18.6 % (11.5-14.5); WHITE BLOOD COUNT 5.8 X10'3 (4.5-11.0)
[2018-11-07 08:57] LABS: ALANINE AMINOTRANSFERASE 10 U/L (12-78); ALBUMIN 1.8 G/DL (3.4-5.0); ALBUMIN/GLOBULIN RATIO 0.4 (1.1-1.5); ALKALINE PHOSPHATASE 72 IU/L (46-116); ANION GAP 8 (8-16); ASPARTATE AMINO TRANSFERASE 16 U/L (10-37); BILIRUBIN,TOTAL 0.5 MG/DL (0.1-1.0); BLOOD UREA NITROGEN 23 MG/DL (7-18); CALCIUM 8.6 MG/DL (8.5-10.1); CHLORIDE 107 MMOL/L (99-107); CREATININE 2.31 MG/DL (0.60-1.10); GLUCOSE 84 MG/DL (70-104); MAGNESIUM 2.1 MG/DL (1.5-2.4); PHOSPHORUS 3.6 MG/DL (2.3-4.5); POTASSIUM 3.7 MMOL/L (3.5-5.1); SODIUM 143 MMOL/L (135-145); TOTAL CARBON DIOXIDE 27.7 MMOL/L (24-32); TOTAL PROTEIN 6.2 G/DL (6.4-8.2); eGFR 27 ML/MIN
[2018-11-07 12:55] VITALS: BP 108/61
[2018-11-07 20:00] VITALS: BP 128/73
[2018-11-07 23:30] VITALS: BP 99/54
[2018-11-08 06:30] LABS: ALANINE AMINOTRANSFERASE 9 U/L (12-78); ALBUMIN 1.7 G/DL (3.4-5.0); ALBUMIN/GLOBULIN RATIO 0.4 (1.1-1.5); ALKALINE PHOSPHATASE 60 IU/L (46-116); ANION GAP 6 (8-16); ASPARTATE AMINO TRANSFERASE 16 U/L (10-37); BASOPHILS % (AUTO) 0.8 % (0-1); BILIRUBIN,TOTAL 0.4 MG/DL (0.1-1.0); BLOOD UREA NITROGEN 25 MG/DL (7-18); CALCIUM 8.1 MG/DL (8.5-10.1); CHLORIDE 109 MMOL/L (99-107); CREATININE 2.49 MG/DL (0.60-1.10); EOSINOPHILS # (AUTO) 0.5 X10'3 (0-0.9); EOSINOPHILS % (AUTO) 8.5 % (0-6); GLUCOSE 85 MG/DL (70-104); HEMATOCRIT 31.1 % (42.0-52.0); HEMOGLOBIN 9.8 g/dl (14.0-17.9); LYMPHOCYTES # (AUTO) 1.9 X10'3 (1.1-4.8); LYMPHOCYTES % (AUTO) 31.8 % (21-51); MEAN CORPUSCULAR HEMOGLOBIN 28.9 PG (27.0-31.0); MEAN CORPUSCULAR HGB CONC 31.6 % (33.0-36.5); MEAN CORPUSCULAR VOLUME 91.4 FL (78-98); MONOCYTES # (AUTO) 0.5 X10'3 (0-0.9); MONOCYTES % (AUTO) 8.4 % (2-12); NEUTROPHILS # (AUTO) 2.9 X10'3 (1.8-7.7); NEUTROPHILS % (AUTO) 50.5 % (42-75); PHOSPHORUS 3.7 MG/DL (2.3-4.5); PLATELET COUNT 204 X10'3 (140-440); POTASSIUM 3.7 MMOL/L (3.5-5.1); RED CELL DISTRIBUTION WIDTH 18.8 % (11.5-14.5); SODIUM 143 MMOL/L (135-145); TOTAL CARBON DIOXIDE 28.3 MMOL/L (24-32); TOTAL PROTEIN 5.8 G/DL (6.4-8.2); WHITE BLOOD COUNT 5.8 X10'3 (4.5-11.0); eGFR 25 ML/MIN
[2018-11-08 07:30] VITALS: BP 110/59
[2018-11-08] MEDS: potassium Cl 20 mEq SR tablet PO SCH (09:45)
[2018-11-08 11:11] LABS: CREATININE 2.37 MG/DL (0.60-1.10)
[2018-11-08 12:00] VITALS: BP 148/86
[2018-11-08 20:00] VITALS: BP 152/85
[2018-11-08] MEDS: atorvastatin 20mg tablet PO SCH (20:07)
[2018-11-09] VITALS: BP 107/57
[2018-11-09 05:32] LABS: BASOPHILS # (AUTO) 0.1 X10'3 (0-0.2); BASOPHILS % (AUTO) 0.9 % (0-1); EOSINOPHILS # (AUTO) 0.5 X10'3 (0-0.9); EOSINOPHILS % (AUTO) 7.1 % (0-6); HEMATOCRIT 29.7 % (42.0-52.0); HEMOGLOBIN 9.5 g/dl (14.0-17.9); LYMPHOCYTES # (AUTO) 2.1 X10'3 (1.1-4.8); LYMPHOCYTES % (AUTO) 29.8 % (21-51); MEAN CORPUSCULAR HEMOGLOBIN 29.2 PG (27.0-31.0); MEAN CORPUSCULAR HGB CONC 32.2 % (33.0-36.5); MEAN CORPUSCULAR VOLUME 90.9 FL (78-98); MEAN PLATELET VOLUME 7.9 FL (7.4-10.4); MONOCYTES # (AUTO) 0.5 X10'3 (0-0.9); MONOCYTES % (AUTO) 7.6 % (2-12); NEUTROPHILS # (AUTO) 3.9 X10'3 (1.8-7.7); NEUTROPHILS % (AUTO) 54.6 % (42-75); PLATELET COUNT 185 X10'3 (140-440); RED BLOOD COUNT 3.26 X10'6 (4.70-6.10); WHITE BLOOD COUNT 7.2 X10'3 (4.5-11.0)
[2018-11-09 05:48] LABS: ALANINE AMINOTRANSFERASE 11 U/L (12-78); ALBUMIN 1.7 G/DL (3.4-5.0); ALBUMIN/GLOBULIN RATIO 0.4 (1.1-1.5); ALKALINE PHOSPHATASE 59 IU/L (46-116); ANION GAP 6 (8-16); ASPARTATE AMINO TRANSFERASE 17 U/L (10-37); BILIRUBIN,TOTAL 0.4 MG/DL (0.1-1.0); BLOOD UREA NITROGEN 26 MG/DL (7-18); BUN/CREATININE RATIO 10.6 (5.4-32.0); CALCIUM 8.1 MG/DL (8.5-10.1); CHLORIDE 109 MMOL/L (99-107); CREATININE 2.45 MG/DL (0.60-1.10); GLUCOSE 93 MG/DL (70-104); MAGNESIUM 2.1 MG/DL (1.5-2.4); PHOSPHORUS 3.4 MG/DL (2.3-4.5); POTASSIUM 3.9 MMOL/L (3.5-5.1); SODIUM 141 MMOL/L (135-145); TOTAL CARBON DIOXIDE 25.8 MMOL/L (24-32); TOTAL PROTEIN 5.8 G/DL (6.4-8.2); eGFR 25 ML/MIN
[2018-11-09 07:48] VITALS: BP 120/59
[2018-11-09] MEDS: aspirin 81mg tablet.DR PO SCH (08:53)
[2018-11-09] MEDS: tamsulosin 0.4mg capsule PO SCH (08:54)
[2018-11-09] MEDS: furosemide 20MG tablet PO SCH (08:54)
[2018-11-09] MEDS: potassium Cl 20 mEq SR tablet PO SCH (08:54)
[2018-11-09 11:37] VITALS: BP 120/74
[2018-11-09 20:00] VITALS: BP 101/50
[2018-11-09] MEDS: atorvastatin 20mg tablet PO SCH (20:56)
[2018-11-10] VITALS: BP 107/62
[2018-11-10 05:39] LABS: BASOPHILS % (AUTO) 0.5 % (0-1); EOSINOPHILS # (AUTO) 0.5 X10'3 (0-0.9); EOSINOPHILS % (AUTO) 7.2 % (0-6); HEMATOCRIT 30.2 % (42.0-52.0); HEMOGLOBIN 9.6 g/dl (14.0-17.9); LYMPHOCYTES # (AUTO) 1.8 X10'3 (1.1-4.8); LYMPHOCYTES % (AUTO) 29.2 % (21-51); MEAN CORPUSCULAR HEMOGLOBIN 28.8 PG (27.0-31.0); MEAN CORPUSCULAR HGB CONC 31.6 % (33.0-36.5); MEAN CORPUSCULAR VOLUME 91.2 FL (78-98); MONOCYTES # (AUTO) 0.4 X10'3 (0-0.9); NEUTROPHILS # (AUTO) 3.5 X10'3 (1.8-7.7); NEUTROPHILS % (AUTO) 56.1 % (42-75); PLATELET COUNT 174 X10'3 (140-440); RED BLOOD COUNT 3.32 X10'6 (4.70-6.10); RED CELL DISTRIBUTION WIDTH 18.7 % (11.5-14.5); WHITE BLOOD COUNT 6.3 X10'3 (4.5-11.0)
[2018-11-10 06:10] LABS: ALBUMIN 1.7 G/DL (3.4-5.0); ALBUMIN/GLOBULIN RATIO 0.4 (1.1-1.5); ALKALINE PHOSPHATASE 60 IU/L (46-116); ANION GAP 8 (8-16); ASPARTATE AMINO TRANSFERASE 12 U/L (10-37); BILIRUBIN,TOTAL 0.4 MG/DL (0.1-1.0); BLOOD UREA NITROGEN 27 MG/DL (7-18); BUN/CREATININE RATIO 10.8 (5.4-32.0); CALCIUM 8.3 MG/DL (8.5-10.1); CHLORIDE 109 MMOL/L (99-107); GLUCOSE 104 MG/DL (70-104); PHOSPHORUS 3.2 MG/DL (2.3-4.5); SODIUM 142 MMOL/L (135-145); TOTAL CARBON DIOXIDE 25.1 MMOL/L (24-32); TOTAL PROTEIN 5.9 G/DL (6.4-8.2); eGFR 24 ML/MIN
[2018-11-10 06:36] LABS: ALANINE AMINOTRANSFERASE 6 U/L (12-78)
[2018-11-10 07:00] VITALS: BP 111/58
[2018-11-10] MEDS: aspirin 81mg tablet.DR PO SCH (08:02)
[2018-11-10] MEDS: tamsulosin 0.4mg capsule PO SCH (08:02)
[2018-11-10] MEDS: potassium Cl 20 mEq SR tablet PO SCH (08:03)
[2018-11-10] MEDS: furosemide 20MG tablet PO SCH (08:03)
[2018-11-10 12:00] VITALS: BP 120/62
== END 2018-11-10 15:50 | disposition home or self-care (01) | DRG 314 ==
LOC: ER 16:41 → ED HOLD 18:24 → SUR 3N 11-07 07:01
PROVIDERS: ATTEND Internal Medicine Critical Care Medicine
PROC: 0JPTXXZ Removal of Tunneled Vascular Access Device from Trunk Subcutaneous Tissue and Fascia, External Approach (ICD-10-PCS; principal; 2018-11-08)
PROC: 02PYX3Z Removal of Infusion Device from Great Vessel, External Approach (ICD-10-PCS; 2018-11-08)
DX: T82.868A Thrombosis due to vascular prosthetic devices, implants and grafts, initial encounter (principal); N18.6 End stage renal disease; I13.2 Hypertensive heart and chronic kidney disease with heart failure and with stage 5 chronic kidney disease, or end stage renal disease; N17.9 Acute kidney failure, unspecified; E78.00 Pure hypercholesterolemia, unspecified; F03.90 Unspecified dementia, unspecified severity, without behavioral disturbance, psychotic disturbance, mood disturbance, and anxiety; M10.9 Gout, unspecified; Y84.1 Kidney dialysis as the cause of abnormal reaction of the patient, or of later complication, without mention of misadventure at the time of the procedure; I25.10 Atherosclerotic heart disease of native coronary artery without angina pectoris; I50.9 Heart failure, unspecified; Z91.15 Patient's noncompliance with renal dialysis; Z99.2 Dependence on renal dialysis; Z95.0 Presence of cardiac pacemaker; Z79.82 Long term (current) use of aspirin; Z79.899 Other long term (current) drug therapy; Z85.820 Personal history of malignant melanoma of skin; Y92.89 Other specified places as the place of occurrence of the external cause
CPT/HCPCS: 36415; 80053; 82575; 83735; 84100; 85025; 87070; 99285; G0378